=== PATIENT | male | born 1935 | race Caucasian/White ===

== ENCOUNTER 2016-11-03 16:23 | Observation (INO) | payer OTHER ==
--- NOTE | ~2016-11-03 | DS ---
Unit #: [id number] #: [id number] Patient: RONDA PRASAD [id number] [address] [place], [place] [address] [id number] I MR#: [id number] NAME: RONDA PRASAD. ROOM: 576 Age: 81 Sex: M Admission Date: 11/03/2016 : 1935 Discharge Date: 11/04/2016 Attending Physician: Julio Rodríguez M.D. Primary Care Physician: Jasmyne Landis M.D. DISCHARGE SUMMARY REASON FOR ADMISSION Syncopal episode. HISTORY OF PRESENT ILLNESS/HOSPITAL COURSE The patient is an 81-year-old male, who was in his usual state of health yesterday when he decided to give blood at the [employer]. Subsequently and afterwards, he began feeling very lightheaded and/or dizzy. He went to go sit in his truck and apparently he passed out. His son found him and called EMS services. The patient was brought to the hospital for further evaluation. Initial laboratory studies yielded a creatinine of 1.9, this morning's creatinine of 1.6 with a GFR of 40 likely representing his baseline. His initial hemoglobin was noted to be 10.8 with a decreased MCV of 81. This morning's hemoglobin 9.7 with an aforementioned MCV of 81. He was therefore initially admitted with syncope and acute kidney injury. Through hospital course, we followed his routine laboratory studies. He was maintained on telemetry floor. There were no acute events, which were noted. At this point in time, it seems likely that his syncopal episode was likely secondary to vasovagal versus acute onset secondary to blood donation. I have mentioned to him secondary to decreased MCV that perhaps it would be adventitious for him not to donate blood in the future moving forward. He expressed understanding and agreement. His blood pressure medications initially were placed on hold secondary to hypotension at the time of discharge. I will resume his Toprol-XL, but we will discontinue his Lasix. I have asked him to follow up with his primary care physician in approximately 7 to 10 days. We have also discontinued his hydralazine and decrease his Cozaar down to 12.5 mg p.o. daily. These are representing new changes. He will follow up with his primary care physician for ongoing management, blood pressure control, as well as recheck of CBC. I will also discharge him home on p.o. iron on a daily basis. FINAL DISCHARGE DIAGNOSES 1. Syncopal episode likely secondary to recent blood draw. 2. Hypotension on admission, now resolved, off blood pressure medications with the changes mentioned above. Please see below for discharge medications. Unit #: [id number] #: [id number] Patient: RONDA PRASAD 3. Acute on chronic kidney disease with baseline creatinine likely close to 1.6. 4. Iron deficiency anemia. 5. Prior history of colon resection in 2010 secondary to diverticulitis and/or abscess. FINAL DISCHARGE MEDICATIONS Antivert 25 mg p.o. b.i.d. p.r.n., Lipitor 20 mg p.o. q.h.s., Toprol-XL 25 mg p.o. q.a.m., Cozaar 12.5 mg p.o. daily, allopurinol 300 mg p.o. daily, tramadol 50 mg p.o. b.i.d. p.r.n., ferrous sulfate 325 mg p.o. daily. DISCHARGE CONDITION Stable. DISCHARGE DISPOSITION Home. Dictated by... Justin Noe/bud TD: 11/04/2016 23:55 JOB #: [id number] DISCHARGE SUMMARY Page 1 of 1 X Julio Rodríguez MD X DISCHARGE SUMMARY
--- NOTE | ~2016-11-03 | CT72 ---
[facility] A Service of [facility] RADIOLOGY TEXT RESULTS PATIENT: RONDA PRASAD LOCATION: [facility] 576-01 : 35 UNIT #: [id number] AGE: [address]: Julio Rodríguez MD SEX: M ORDER DR: [id number] [facility] [address] [facility]. [place], [place] [address] [id number] I MR#: [id number] Acc #: [id number] NAME: RONDA PRASAD. : 1935 SEX: M STUDY DATE/TIME: 11/03/2016 15:43 UNIT: CEDOF ROOM: 78131 STUDY DESCRIPTION: CT Head Wo Contrast Stroke Attending Physician: Julio Rodríguez M.D. Ordering Physician: Jordan Hidalgo D.O. Primary Care Physician: Jasmyne Landis M.D. MEDICAL IMAGING REPORT This report is preliminary unless electronic signature is present EXAM Noncontrast head CT. HISTORY Weakness, dizziness, blurred vision 20 minutes prior to admission. COMPARISON Head CT, 10/20/2015. TECHNIQUE Axial noncontrast images were obtained from the skull base to the vertex. This CT exam was performed with one or more of the following radiation dose reduction techniques: automatic exposure control, adjustment of mA and/or kV according to patient size, and iterative reconstruction. FINDINGS Ventricular size and configuration are normal. There is no evidence of acute infarct or hemorrhage. There are no extraaxial fluid collections. No mass lesion or mass effect is seen. There are no skull fractures. IMPRESSION Normal noncontrast head CT. Dictated by... Rachel Bloom M.D. THIS IS AN ELECTRONICALLY VERIFIED REPORT Rachel Bloom M.D. at 11/04/2016 10:51 PM GOMEZ/keny TD: 11/04/2016 07:05 [facility] A Service [facility] RADIOLOGY TEXT RESULTS PATIENT: RONDA PRASAD LOCATION: [facility] 576-01 : 35 UNIT #: [id number] AGE: [address]: Julio Rodríguez MD SEX: M ORDER DR: JOB #: [id number] MEDICAL IMAGING REPORT Page 1 of 1 COPY
--- NOTE | ~2016-11-03 | EKG ---
PATIENT: RONDA PRASAD UNIT #: [id number] Ventricular Rate: 52 BPM Atrial Rate: 52 BPM P-R Interval: 170 ms QRS Duration: 80 ms Q-T Interval: 436 ms QTC Calculation(Bezet): 405 ms P Montgomery: 14 degrees Calculated R Montgomery: -49 degrees Calculated T Montgomery: 35 degrees Diagnosis Line: Sinus bradycardia Diagnosis Line: Left axis deviation Diagnosis Line: Inferior infarct (cited on or before 11-JUN-2011) Diagnosis Line: Anterior infarct , age undetermined Diagnosis Line: Abnormal ECG Diagnosis Line: When compared with ECG of 11-JUN-2011 12:21, Diagnosis Line: Anterior infarct is now Present Diagnosis Line: Confirmed by DAIJA AGUILAR MD ([id number]) on 11/05/2016 Diagnosis Line: 10:55:33 PM INTERPRETING MD: LAUREN FERRARA
--- NOTE | ~2016-11-03 | HP ---
Unit #: [id number] #: [id number] Patient: RONDA PRASAD [id number] [address] [place], [place] [address] [id number] I MR#: [id number] NAME: RONDA PRASAD. ROOM: 576 Age: 81 Sex: M Admission Date: 11/03/2016 : 1935 Attending Physician: Julio Rodríguez M.D. Primary Care Physician: Jasmyne Landis M.D. HISTORY AND PHYSICAL CHIEF COMPLAINT Near syncope vs syncope. DISCUSSION This is an 81-year-old gentleman who has a past medical history of hypertension, dyslipidemia, chronic kidney disease. He said that he donate blood to [employer] today and then he, after that, in the afternoon he went to shopping with his son and he feels lightheaded and then he said he decided to go to his truck outside and he said he went outside, he had blurry vision and he could not see and he said that he does not remember after that what happened. He said family found him on the backseat of the car. He denies any chest pain during the syncopal episode, denies any movements and denies any loss of bowel or urine incontinence or any other complaint. This was unknown duration of time. PAST MEDICAL HISTORY 1. History of hypertension. 2. Dyslipidemia. 3. Chronic kidney disease. PAST SURGICAL HISTORY 1. History of ulcer surgery a long time ago. 2. History of hiatal hernia surgery. 3. Umbilical hernia repair. 4. History of back surgery. 5. History of sigmoid diverticulitis with abscess status post colon resection in 2010. SOCIAL HISTORY He denies smoking. He drinks beer rarely. He denies illicit drug use. FAMILY HISTORY Coronary artery disease in his mother. ALLERGIES Silvadene. HOME MEDICATIONS Is the followin. Toprol XL 25 mg daily 2. Tramadol 50 mg twice a day p.r.n. 3. Lasix 20 mg daily 4. Meclizine 25 mg twice a day 5. Allopurinol 300 mg daily Unit #: [id number] #: [id number] Patient: RONDA PRASAD 6. Atorvastatin 20 mg daily 7. Fish oil 1 gram twice a day 8. Hydralazine 50 mg twice a day 9. Cozaar 100 mg daily REVIEW OF SYSTEMS Negative except as in history of present illness. PHYSICAL EXAMINATION GENERAL: Elderly male lying in the bed comfortably, currently is not in any distress. He is alert, awake, and oriented x3, not in any distress. VITAL SIGNS: His current vitals are the following, temperature 975, heart rate 66, respiratory rate 18, on arrival blood pressure was found to be 87/46 which has improved to 137/70. HEENT EXAMINATION: Pupils equal reactive to light and accommodation. Head: Normocephalic and atraumatic. Pharynx normal. No pharyngeal exudate. No nystagmus. NECK: Supple. No jugular venous distention. No carotid bruit. LUNGS: Clear to auscultation. No rhonchi. No wheezing. HEART: S1 and S2 regular rate and rhythm. ABDOMEN: Soft, nontender, and nondistended. Bowel sounds are positive. EXTREMITIES: Inspection normal. No cyanosis, no clubbing, and no edema. NEUROLOGIC: Alert, oriented x2, normal speech. Cranial nerves II through XII intact, no facial droop. Power 5/5 on both sides. PSYCHIATRIC: Mood normal mood and affect. SKIN: No rash. DIAGNOSTIC STUDIES LABORATORY: Laboratory workup is the following, today, his troponin is 0.01, lactic acid level is 1.9, INR is 1, sodium 140, potassium 4.4, glucose 119, BUN 40, creatinine 1.9. LFT within normal limits. White count 6.8, hemoglobin 10, hematocrit 34, platelets 178, troponin less than 0.05, Accu-Chek 107. IMAGING: Chest x-ray shows mild elevation of the left hemidiaphragm, old granulomatous disease. CT head is normal. ASSESSMENT/PLAN 1. Near syncope vs syncope, most likely secondary to hypotension, his blood pressure on arrival, he was found to be hypotensive, blood pressure was 87/46, will admit the patient to monitor bed for 23 hour observation. 2. Acute kidney injury on chronic kidney disease, questionable baseline creatinine, will give IV fluids today. He seems compensated, no volume overload clinically. 3. Dyslipidemia. 4. Hypertension in the view of earlier he was hypotensive with near syncopal episode. I will continue to hold medication today, Toprol XL and hydralazine and Lasix, and Cozaar, resume in the morning and blood pressure remains stable. 5. DVT prophylaxis, place the patient on Lovenox 30 mg renal dose. Dictated by Diane Palma M.D. Unit #: [id number] #: [id number] Patient: RONDA PRASAD JANET/michelle TD: 11/04/2016 14:22 JOB #: [id number] HISTORY AND PHYSICAL Page 1 of 1 X X HISTORY AND PHYSICAL
--- NOTE | ~2016-11-03 | CR72 ---
[facility] A Service of [facility] RADIOLOGY TEXT RESULTS PATIENT: RONDA PRASAD LOCATION: [facility] [address] : 35 UNIT #: [id number] AGE: [address]: Julio Rodríguez MD SEX: M ORDER DR: [id number] [facility] [address] [facility]. [place], [place] [address] [id number] I MR#: [id number] Acc #: [id number] NAME: RONDA PRASAD. : 1935 SEX: M STUDY DATE/TIME: 11/03/2016 16:13 UNIT: CEDOF ROOM: 91279 STUDY DESCRIPTION: CR Chest Single View Portable Attending Physician: Julio Rodríguez M.D. Ordering Physician: Jordan Hidalgo D.O. Primary Care Physician: Jasmyne Landis M.D. MEDICAL IMAGING REPORT This report is preliminary unless electronic signature is present EXAM Portable chest. HISTORY Weakness, shortness of air, dizzy spells today after giving blood. COMPARISON 03/27/2013 FINDINGS Portable view of the chest demonstrates mild elevation of the left hemidiaphragm blunting the left CP angle, probably represents chronic volume loss and scarring as noted on the patient's study from 2012. Scattered parenchymal and hilar calcifications suggest old granulomatous disease. No acute airspace disease. Heart size within normal limits. Mild aortic atherosclerotic changes. Osseous structures unremarkable for age. Overall no acute findings. Dictated by... Rachel Bloom M.D. THIS IS AN ELECTRONICALLY VERIFIED REPORT Rachel Bloom M.D. at 11/04/2016 10:51 PM GOMEZ/keny TD: 11/04/2016 07:25 JOB #: [id number] MEDICAL IMAGING REPORT Page 1 of 1 COPY
[~2016-11-03 16:23] MED LIST: AVALIDE 300-251 TAB PO; BYSTOLIC10 MG PO; DETROL LA PO; FISH OIL 1,0001 EAC2 PO; FLAGYL PO; HYDRALAZINE HCL50 MG PO; HYDROCHLOROTHIA25 MG PO; LASIX20 MG PO; LEVAQUIN PO; LIPITOR PO; LORTAB 7.5-5001 TAB PO; NEXIUM PO; SOD BICARBONATE PO
[2016-11-03 16:37] LABS: POC - CKMB <1.0 ng/mL (0.0-7.9); POC - TROPONIN <0.05 ng/mL (<=0.05)
[2016-11-03 17:04] LABS: BASOPHIL% 0.6 % (0-2.5); EOSINOPHIL# 0.1 X10e3 (0-0.7); EOSINOPHIL% 1.6 % (0.0-7.0); HEMATOCRIT 34.4 % (38.0-50.0); HEMOGLOBIN 10.8 gm/dL (13.0-16.0); LYMPHOCYTE# 1.3 X10e3 (1.0-3.5); LYMPHOCYTE% 19.5 % (17.0-45.0); MEAN CELL VOLUME 81.7 FL (83-96); MEAN CORPUSCULAR HEMOGLOBIN 25.7 PG (28-34); MEAN CORPUSCULAR HGB CONC 31.5 g/dL (30-36); MEAN PLATELET VOLUME 8.9 FL (6.5-11.5); MONOCYTE# 0.8 X10e3 (0-1.0); MONOCYTE% 11.4 % (3.0-12.0); NEUTROPHIL# 4.5 X10e3 (1.5-7.1); NEUTROPHIL% 66.9 % (40-75); PLATELET COUNT 178 X10e3 (140-420); RED BLOOD COUNT 4.22 X10e (3.90-5.60); RED CELL DISTRIBUTION WIDTH 17.2 % (11.0-15.5); WHITE BLOOD COUNT 6.8 X10e3 (4.0-10.5)
[2016-11-03 17:08] LABS: DIFF IND NO
[2016-11-03 17:11] LABS: PARTIAL THROMBOPLASTIN TIME 21.5 SECONDS (23.5-31.3)
[2016-11-03 17:18] LABS: ALBUMIN SERUM 3.9 g/dL (3.5-5.0); BILIRUBIN, DIRECT 0.2 mg/dL (0.0-0.2); BILIRUBIN,INDIRECT 0.4 mg/dL (0.0-0.9); BILIRUBIN,TOTAL 0.6 mg/dL (0.2-2.0); BUN/CREATININE RATIO 21.05; CALCIUM SERUM 9.3 mg/dL (8.4-10.2); CREATININE SERUM 1.9 mg/dL (0.6-1.4); GLOM FILT RATE Estimated 32.3 mL/min (>60); POTASSIUM 4.4 mmol/L (3.5-5.1); PROTEIN TOTAL SERUM 6.9 g/dL (6.0-8.3)
[2016-11-03] MEDS ORDERED: ALLOPURINOL300 MG PO (17:56)
[2016-11-03] MEDS ORDERED: HYDRALAZINE HCL50 MG PO (17:57)
[2016-11-03] MEDS ORDERED: ATORVASTATIN CA20 MG PO (17:57)
[2016-11-03] MEDS ORDERED: FISH OIL 1,0001 EAC1 PO (17:57)
[2016-11-03] MEDS ORDERED: TOPROL XL50 MG PO (17:58)
[2016-11-03] MEDS ORDERED: COZAAR100 MG PO (17:58)
[2016-11-03] MEDS ORDERED: TRAMADOL HCL50 M1 PO ×2 (18:01)
[2016-11-03] MEDS ORDERED: LASIX20 MG PO (18:01)
[2016-11-03 18:02] LABS: POC - CKMB <1.0 ng/mL (0.0-7.9); POC - TROPONIN <0.05 ng/mL (<=0.05)
[2016-11-03] MEDS ORDERED: MOTION RELIEF25 MG PO (18:02)
[2016-11-04 05:13] LABS: BASOPHIL# 0.1 X10e3 (0-0.3); BASOPHIL% 0.8 % (0-2.5); EOSINOPHIL# 0.1 X10e3 (0-0.7); EOSINOPHIL% 1.5 % (0.0-7.0); HEMOGLOBIN 9.7 gm/dL (13.0-16.0); LYMPHOCYTE# 1.7 X10e3 (1.0-3.5); LYMPHOCYTE% 26.2 % (17.0-45.0); MEAN CELL VOLUME 81.6 FL (83-96); MEAN CORPUSCULAR HEMOGLOBIN 25.6 PG (28-34); MEAN CORPUSCULAR HGB CONC 31.4 g/dL (30-36); MEAN PLATELET VOLUME 8.6 FL (6.5-11.5); MONOCYTE# 0.6 X10e3 (0-1.0); MONOCYTE% 9.3 % (3.0-12.0); NEUTROPHIL# 4.1 X10e3 (1.5-7.1); NEUTROPHIL% 62.2 % (40-75); PLATELET COUNT 145 X10e3 (140-420); RED BLOOD COUNT 3.79 X10e (3.90-5.60); RED CELL DISTRIBUTION WIDTH 17.3 % (11.0-15.5); WHITE BLOOD COUNT 6.6 X10e3 (4.0-10.5)
[2016-11-04 05:22] LABS: DIFF IND NO
[2016-11-04 06:08] LABS: BUN/CREATININE RATIO 21.25; CREATININE SERUM 1.6 mg/dL (0.6-1.4); GLOM FILT RATE Estimated 39.8 mL/min (>60); POTASSIUM 4.1 mmol/L (3.5-5.1)
[2016-11-04] MEDS ORDERED: IRON325 ( 651 PO (15:15)
[2016-11-05 11:26] LABS: POC - CREATININE 2.12 mg/dL (0.64-1.27)
== END 2016-11-04 16:05 | disposition home or self-care (01) ==
LOC: CED 16:23 → CEDOF 21:00 → C5C 11-04 07:37
PROVIDERS: Emergency Medicine; Family Medicine; Internal Medicine
DX: R55 Syncope and collapse (principal); I12.9 Hypertensive chronic kidney disease with stage 1 through stage 4 chronic kidney disease, or unspecified chronic kidney disease; N18.9 Chronic kidney disease, unspecified; N17.9 Acute kidney failure, unspecified; D50.9 Iron deficiency anemia, unspecified; I70.0 Atherosclerosis of aorta; J98.6 Disorders of diaphragm; D71 Functional disorders of polymorphonuclear neutrophils; Z79.899 Other long term (current) drug therapy; Z82.49 Family history of ischemic heart disease and other diseases of the circulatory system; Z88.8 Allergy status to other drugs, medicaments and biological substances; Z98.890 Other specified postprocedural states
CPT/HCPCS: 36415; 70450; 71010; 80048; 80076; 82553; 82565; 82947; 83605; 84484; 85025; 85610; 85730; 93005; 96360; 96361; 96374; 99285; C9113; G0378; J1650